=== PATIENT | male | born 1980 | race Caucasian/White ===

== ENCOUNTER 2024-03-28 13:31 | Outpatient (CLI) | payer OTHER, SELFPAY ==
--- NOTE | ~2024-03-28 | MR_ITS ---
EXAMINATION: MR shoulder LT wo con DATE: 03/28/2024 14:08 INDICATION: Left shoulder pain. TECHNIQUE: Magnetic resonance imaging (MRI) of the left shoulder was performed without intravenous co ntrast. Sequences included axial PD-weighted FS FSE, coronal oblique PD-weighted FS FSE and T2-weight ed FS FSE, and sagittal oblique T2-weighted FS FSE and T1-weighted FSE. COMPARISON: Left shoulder radiographs 01/09/2024 FINDINGS: Coracoacromial arch: The acromion undersurface is curved in morphology (type II). There is mild acromioclavicular joint os teoarthritis. There is a physiologic volume of fluid in subacromial/subdeltoid bursa. Rotator cuff: There is mild supraspinatus tendinopathy. Infraspinatus and teres minor tendons are normal. Subscapul carlos alberto tendon is normal. There is no asymmetric fatty atrophy of the rotator cuff muscle bellies. Biceps tendon and glenoid labrum: Biceps tendon is in bicipital groove. There is a tear of the superior and posterior glenoid labrum (S LAP tear). Fluid: There is a small glenohumeral joint effusion. Bones/cartilage: There is posterior and inferior sloping of the glenoid. There is partial-thickness cartilage loss of humeral head and glenoid, deep at superior humeral head. IMPRESSION: 1. Moderate glenohumeral joint chondrosis. SLAP tear. 2. Small glenohumeral joint effusion. 3. Mild rotator cuff tendinopathy. No tear. 4. Mild acromioclavicular joint osteoarthritis. Reviewed, dictated and finalized at location A.
== END 2024-03-28 13:32 | disposition home or self-care (01) ==
LOC: MICIMG 13:33
PROVIDERS: PCP Nurse Practitioner Family; Visit Provider Nurse Practitioner Family
DX: M19.012 Primary osteoarthritis, left shoulder (principal)
CPT/HCPCS: 73221